=== PATIENT | female | born 1990 | race Caucasian/White ===

== ENCOUNTER 2024-06-16 17:50 | Emergency (ER) | payer OTHER ==
[2024-06-16 18:02] VITALS: RESP 20; TEMP 97.2
[2024-06-16] MEDS ORDERED: Fluor-I-Strip/Ful-Flo OP ONE (18:05)
[2024-06-16] MEDS ORDERED: TETRACAINE 0.5% STERI-UNIT SOL OP ONE (18:05)
[2024-06-16] MEDS ORDERED: Eye-Stream Solution ONE (18:06)
[2024-06-16] MEDS: Fluor-I-Strip/Ful-Flo OP ONE (18:07)
[2024-06-16] MEDS: Eye-Stream Solution OP ONE (18:07)
[2024-06-16] MEDS: TETRACAINE 0.5% STERI-UNIT SOL OP STA (18:07)
--- NOTE | 2024-06-16 18:14 | ERPHSYRPT ---
- History of Present Illness Time Seen by Provider: 06/16/24 18:05 Source: patient Exam Limitations: no limitations Patient Subjective Stated Complaint: PT states 'Day two of this. My eye is red, irritated, was crusted shurt this morning." Triage Nursing Assessment: Pt presented alert and oriented X 3, skin pwd. Pt ambulates with an upright steady gait, able to speak in clear full sentences. PT left eye red, watery Physician History: 34-year-old female presents to our ED for evaluation of left eye irritation and foreign body sensation. Patient states symptoms started 2 days ago. Patient has been awakening with crusting around her left eye. The left eye is red and irritated. Patient states she was picking into her left eye and may have scratched it. Patient feels a foreign body sensation right around her cornea. No acute change in vision. No pain with extraocular motion. No headache. No nausea no vomiting. No neck pain. No trauma no fever. No neck pain no photophobia. No meningeal signs. Patient otherwise feels well. She voices no other complaints or concerns at this time. Portions of this note were created with voice recognition technology. There may be grammatical, spelling, punctuation or sound alike errors Timing/Duration: day(s) (2 days ago) Location: left eye Severity: moderate Apparent Injury: yes (Patient was picking at her eye and thinks she may have scratched it) Associated Symptoms: other (Foreign body sensation) Visual Assistive Devices: Glasses (Patient wears glasses no contacts) Chemical Exposure: No Trauma: No Welding Arc/Tanning Bed Exposure: No Allergies/Adverse Reactions: ethinyl estradiol [From [facility] (91)] Allergy (Intermediate, Verified 06/16/24 18:02) sneeze levonorgestrel [From [facility] (91)] Allergy (Intermediate, Verified 06/16/24 18:02) sneeze Hx Tetanus, Diphtheria Vaccination/Date Given: No Hx Influenza Vaccination/Date Given: No Hx Pneumococcal Vaccination/Date Given: No Immunizations Up to Date: No Travel Risk - International Travel Have you traveled outside of the country in past 3 weeks: No - Emerging Infectious Disease Are you exhibiting symptoms associated with any current EIDs: No - Review of Systems Constitutional: No Symptoms, No Fever, No Chills Eyes: No Symptoms Ears, Nose, & Throat: No Symptoms Respiratory: No Symptoms, No Cough, No Dyspnea Cardiac: No Symptoms, No Chest Pain, No Edema, No Syncope Abdominal/Gastrointestinal: No Symptoms, No Abdominal Pain, No Nausea, No Vomiting, No Diarrhea Genitourinary Symptoms: No Symptoms, No Dysuria Musculoskeletal: No Symptoms, No Back Pain, No Neck Pain Skin: No Symptoms, No Rash Neurological: No Symptoms, No Dizziness, No Focal Weakness, No Sensory Changes Psychological: No Symptoms Endocrine: No Symptoms Hematologic/Lymphatic: No Symptoms Immunological/Allergic: No Symptoms All Other Systems: Reviewed and Negative - Past Medical History Pertinent Past Medical History: No - Past Surgical History Past Surgical History: Yes Other Surgical History: c section - Female History Hx Last Menstrual Period: 05/20/2025 Hx Now: No - Social History Smoking Status: Never smoker Exposure to second hand smoke: Yes Drug Use: none - Social Determinants of Health Will the patient participate in the screening: Declined to provide - Nursing Vital Signs Nursing Vital Signs: Initial Vital Signs Temperature 97.2 F 06/16/24 17:55 Pulse Rate 89 06/16/24 17:55 Respiratory Rate 20 06/16/24 17:55 Blood Pressure 169/91 06/16/24 17:55 O2 Sat by Pulse Oximetry 99 06/16/24 17:55 Pain Scale Pain Intensity 2 - Physical Exam General Appearance: no apparent distress Vision Acuity Degree Evaluation Phase: Uncorrected Vision Acuity Right Eye: 20/50 Vision Acuity Left Eye: 20/70 Eye Exam: right eye: normal inspection, PERRL, EOMI, left eye: conjunctival in flammation, corneal abrasion, other (Negative Alfonzo sign) Ears, Nose, Throat Exam: normal ENT inspection, TMs normal, pharynx normal, moist mucous membranes Neck Exam: normal inspection, non-tender, supple, full range of motion Respiratory Exam: normal breath sounds, lungs clear, respiratory distress Cardiovascular Exam: regular rate/rhythm, normal heart sounds, normal peripheral pulses Gastrointestinal Exam: soft, normal bowel sounds, No tenderness Extremity Exam: normal inspection, normal range of motion Neurologic: alert, oriented x 3, cooperative, hall worker II-XII nml as tested Skin Exam: normal color, warm Lymphatic: No adenopathy SpO2 Interpretation: normal SpO2: 99 O2 Delivery: Room Air - Course Nursing assessment & vital signs reviewed: Yes Ordered Tests: Medication Summary Discontinued Medications Generic Name Dose Route Start Last Admin Trade Name Christel PRN Reason Stop Dose Admin Erythromycin 1 gm 06/16/24 18:14 Erythromycin Base 1 Gm Tube Eye Ointment OP 06/16/24 18:15 STAT STA Eye Irrigation Solution 15 ml 06/16/24 18:04 06/16/24 18:07 Sodium/Potassium/Frederic/Magnesium 30 Ml Eye Wash OP 06/16/24 18:05 15 ml STAT ONE Administration Eye Irrigation Solution Confirm 06/16/24 18:06 Sodium/Potassium/Frederic/Magnesium 30 Ml Eye Wash Administered 06/16/24 18:07 Dose 30 ml .ROUTE .STK-MED ONE Fluorescein Sodium 1 mg 06/16/24 18:04 06/16/24 18:07 Fluorescein Sodium 1 Mg/Strip Strip OP 06/16/24 18:05 1 mg STAT ONE Administration Fluorescein Sodium Confirm 06/16/24 18:05 Fluorescein Sodium 1 Mg/Strip Strip Administered 06/16/24 18:06 Dose 1 mg OP .STK-MED ONE Tetracaine HCl 4 ml 06/16/24 18:04 06/16/24 18:07 Tetracaine Hcl/Pf 4 Ml Bottle OP 06/16/24 18:05 4 ml STAT STA Administration Tetracaine HCl Confirm 06/16/24 18:05 Tetracaine Hcl/Pf 4 Ml Bottle Administered 06/16/24 18:06 Dose 4 ml OP .STK-MED ONE - Progress Progress: improved Progress Note: 34-year-old female presents to our ED for evaluation of left eye redness and irritation. Physical exam reveals a left eye conjunctivitis. There is a small punctate corneal abrasion observed likely from picking in her eye per patient. Eye was irrigated. Erythromycin ophthalmic ointment applied. A prescription for the same forwarded to patient's pharmacy. Patient advised and agrees to follow-up with their eye doctor within 48 hours for reevaluation. No indication for further workup. No periorbital cellulitis. Will discharge home. Patient voices no other complaints or concerns at this time. Portions of this note were created with voice recognition technology. There may be grammatical, spelling, punctuation or sound alike errors Complexity of problem addressed is moderate acute complicated. No critical care time. Complex of data reviewed and analyzed is none. Diagnosis made based on history and physical exam. Risk of complication and or risk of morbidity/mortality of patient management is moderate. A prescription for erythromycin ophthalmic forwarded to patient's pharmacy.. Vital stable. Time spent to discharge patient is approximately 15 minutes. Plan of care established for shared decision making. No social determinants of health present to impede follow-up. Portions of this note were created with voice recognition technology. There may be grammatical, spelling, punctuation or sound alike errors Portions of this note were created with voice recognition technology. There may be grammatical, spelling, punctuation or sound alike errors 06/16/24 18:19 Counseled pt/family regarding: diagnosis, need for follow-up - Departure Departure Disposition: Home Clinical Impression: Conjunctivitis, Corneal abrasion Condition: Stable Critical Care Time: No Additional Instructions: Please follow-up with your eye doctor within 48 hours for reevaluation Discharge/Care Plan MINGO SORIA was seen on 06/16/24 in the Emergency Room. The patient was counseled regarding Diagnosis,Lab results, Imaging studies, need for follow up and when to return to the Emergency Room. Prescriptions given: Discharge Note I have spoken with the patient and/or caregivers. I have explained the patient's condition, diagnosis and treatment plan based on the information available to me at this time. I have answered the patient's and/or caregiver's questions and addressed any concerns. The patient and/or caregivers have as good understanding of the patient's diagnosis, condition and treatment plan as can be expected at this point. The vital signs have been stable. The patient's condition is stable and appropriate for discharge from the emergency department. The patient will pursue further outpatient evaluation with the primary care physician or other designated or consulting physician as outlined in the discharge instructions. The patient and/or caregivers are agreeable to this plan of care and follow-up instructions have been explained in detail. The patient and/or caregivers have received these instruction. The patient/and or caregivers are aware that any significant change in condition or worsening of symptoms should prompt an immediate return to this or the closest emergency department or call 911. Prescriptions: Erythromycin Base 3.5 gm [Erythromycin 3.5 GM OPHTH.] 3.5 gm OP QID #1 unit
[2024-06-16] MEDS ORDERED: Sodium Chloride 0.9% 500 ML 0 ML IV ONE (18:32)
[2024-06-16] MEDS ORDERED: Erythromycin 1 GM ONE (18:35)
[2024-06-16] MEDS: Erythromycin 1 GM OP STA (18:45)
[2024-06-16 18:57] VITALS: BP 160/78; PULSE 90; O2SAT 98
== END 2024-06-16 19:05 | disposition home or self-care (01) ==
LOC: ED 17:50
DX: S05.02XA Injury of conjunctiva and corneal abrasion without foreign body, left eye, initial encounter (principal); H10.9 Unspecified conjunctivitis; H57.12 Ocular pain, left eye
CPT/HCPCS: 99283; A9270-GY